=== PATIENT | female | born 1985 | race African-American/Black ===

== ENCOUNTER 2016-05-22 14:42 | Outpatient (CLI) | payer MEDICAID ==
--- NOTE | 2016-05-22 15:44 | Non Stress Test Report ---
Non Stress Test Datetime Report Generated by CPN: 05/22/2016 15:44 DEMOGRAPHIC EGA NST: 36.2 INDICATION Indication for Study: Other Indication for Study (NST) Other: GDM MONITORING Monitor Explained: Monitor Explained; Test Explained; Patient Verbalized Understanding Time on Monitor: 05/22/2016 14:54 Time off Monitor: 05/22/2016 15:29 NST Duration: 35 NST INTERVENTIONS NST Interventions: PO Hydration; Reposition Patient Physician Notified NST: A. Emmel CNM BABY A: [id number] BABY A Movement : Present Contraction Frequency : None FHR Baseline : 135 Accelerations : 15X15 Variability : Moderate 6-25bpm NST Review: Meets Criteria for Reactive NST NST Review and Verified By : Carlos Eduardo Doss RN NST Results: Reactive NST REPORT Report Trigger: Send Report
== END 2016-05-22 15:42 | disposition home or self-care (01) ==
LOC: LC 14:42
PROVIDERS: ATTEND Obstetrics & Gynecology
PROC: 4A1HXCZ Monitoring of Products of Conception, Cardiac Rate, External Approach (ICD-10-PCS; principal; 2016-05-22)
DX: O24.419 Gestational diabetes mellitus in pregnancy, unspecified control (principal); Z3A.36 36 weeks gestation of pregnancy
CPT/HCPCS: 59025

== ENCOUNTER 2016-06-07 11:29 | Outpatient (CLI) | payer MEDICAID ==
--- NOTE | 2016-06-07 12:01 | L&D Flow Sheet ---
LD Flowsheet Datetime Report Generated by CPN: 06/07/2016 12:00 Datetime: 06/07/2016 11:58 Patient Care Patient Position/Activity: Right Lateral (Saba Vitrano, RN) Datetime: 06/07/2016 11:40 NBP Sys/Katie/Mean (mmHg): 118 (QS system process) : 65 (QS system process) : 84 (QS system process) Pulse: 88 (QS system process) Respirations: 16 (Saba Vitrano, RN) Temperature (F): 98.6 (Saba Vitrano, RN) Temperature (C): 37.0 (QS system process) Temperature Route: Oral (Saba Vitrano, RN) Communication LaborFlag: Labor (QS system process) Datetime: 06/07/2016 11:38 Vital Signs Stage of : Labor (Saba Rodriguez, OBED) Patient Care Patient Position/Activity: Left Tilt; Semi-Fowlers (Sbaa Rodriguez RN) I/O Interventions: Ice Chips Given; Popsicle; Clear Liquids Given (Saba Rodriguez RN) Patient Care Comments: Pt to unit for repeat NST; denies needs or complaints. (Saba Rodriguez RN) Teaching Instructional Method: Verbal; Patient Instructed; Verbalized Understanding (Saba Rodriguez RN) Plan of Care: Plan of Care Discussed (Saba Rodriguez RN) Unit Routine: [place] to Room; Call [place]; Visiting Policy; Unit Personnel; Monitoring; Safety/Fall Risk Prevention; Bathroom Privileges (Saba Rodriguez RN)
--- NOTE | 2016-06-07 12:13 | Non Stress Test Report ---
Non Stress Test Datetime Report Generated by CPN: 06/07/2016 12:13 DEMOGRAPHIC Test Number: 2 EGA NST: 38.4 INDICATION Indication for Study: Diabetes Mellitus Indication for Study (NST) Other: gdm MONITORING Monitor Explained: Monitor Explained; Test Explained; Patient Verbalized Understanding Time on Monitor: 06/07/2016 11:38 Time off Monitor: 06/07/2016 12:04 NST Duration: 26 NST INTERVENTIONS NST Interventions: PO Hydration; Reposition Patient Physician Notified NST: H. Derek, CNM BABY A: [id number] BABY A Movement : Present Contraction Frequency : x1 FHR Baseline : 120 Accelerations : 15X15 Decelerations : None Variability : Moderate 6-25bpm NST Review: Meets Criteria for Reactive NST NST Review and Verified By : Terry Bui RNC NST Results: Reactive NST REPORT Report Trigger: Send Report
== END 2016-06-07 12:09 | disposition home or self-care (01) ==
LOC: LC 11:29
PROVIDERS: ATTEND Obstetrics & Gynecology
PROC: 4A1HXCZ Monitoring of Products of Conception, Cardiac Rate, External Approach (ICD-10-PCS; principal; 2016-06-07)
DX: O24.419 Gestational diabetes mellitus in pregnancy, unspecified control (principal); Z3A.38 38 weeks gestation of pregnancy
CPT/HCPCS: 59025

== ENCOUNTER 2016-06-11 12:21 | Outpatient (CLI) | payer MEDICAID ==
--- NOTE | 2016-06-11 13:27 | Non Stress Test Report ---
Non Stress Test Datetime Report Generated by CPN: 06/11/2016 13:27 DEMOGRAPHIC EGA NST: 39.1 INDICATION Indication for Study: Diabetes Mellitus; Ordered by Provider Indication for Study (NST) Other: GDM MONITORING Monitor Explained: Monitor Explained; Test Explained; Patient Verbalized Understanding Time on Monitor: 06/11/2016 13:04 Time off Monitor: 06/11/2016 13:24 NST Duration: 20 NST INTERVENTIONS NST Interventions: PO Hydration; Reposition Patient Physician Notified NST: K Delgado CNM BABY A: [id number] BABY A Movement : Present Contraction Frequency : rare FHR Baseline : 130 Accelerations : 15X15 Decelerations : None Variability : Moderate 6-25bpm NST Review: Meets Criteria for Reactive NST NST Review and Verified By : Mark Torres RN NST Results: Reactive NST REPORT Report Trigger: Send Report
== END 2016-06-11 13:28 | disposition home or self-care (01) ==
LOC: LC 12:21
PROVIDERS: ATTEND Specialist
PROC: 4A1HXCZ Monitoring of Products of Conception, Cardiac Rate, External Approach (ICD-10-PCS; principal; 2016-06-11)
DX: O24.419 Gestational diabetes mellitus in pregnancy, unspecified control (principal); Z3A.39 39 weeks gestation of pregnancy
CPT/HCPCS: 59025

== ENCOUNTER 2016-06-12 06:15 | Inpatient (IN) | payer MEDICAID ==
[2016-06-11 11:50] LABS: ABSOLUTE LYMPHOCYTES (AUTO) 1.8 10^3/uL (0.5-4.7); ABSOLUTE MONOCYTES (AUTO) 0.8 10^3/uL (0.1-1.4); ABSOLUTE NEUT (AUTO) 6.3 10^3/uL (1.7-8.2); BASOPHILS % (AUTO) 0.2 % (0-2); EOSINOPHILS % (AUTO) 0.5 % (0-6); HEMATOCRIT 28.9 % (36.0-47.0); HEMOGLOBIN 9.5 g/dL (12.0-15.5); HGB HCT DIFFERENCE -0.4; LYMPHOCYTES % (AUTO) 20.3 % (13-45); MEAN CORPUSCULAR HEMOGLOBIN 25.8 pg (27.0-33.4); MEAN CORPUSCULAR HGB CONC 32.7 g/dL (32.0-36.0); MEAN CORPUSCULAR VOLUME 79 fl (80-97); RED BLOOD COUNT 3.66 10^6/uL (3.72-5.28); RED CELL DISTRIBUTION WIDTH 13.8 % (11.5-14.0); WHITE BLOOD COUNT 8.9 10^3/uL (4.0-10.5)
[2016-06-11 11:57] LABS: APPEARANCE,URINE SLIGHTLY-CLOUDY; BILIRUBIN,URINE NEGATIVE (NEGATIVE); GLUCOSE, URINE NEGATIVE (NEGATIVE); KETONES,URINE NEGATIVE (NEGATIVE); LEUKOCYTE ESTERASE,URINE TRACE (NEGATIVE); NITRITE,URINE NEGATIVE (NEGATIVE); PROTEIN,URINE NEGATIVE (NEGATIVE); URINE SPECIFIC GRAVITY 1.009; UROBILINOGEN,URINE NEGATIVE mg/dL (<2.0)
[2016-06-11 12:18] LABS: URINE BARBITURATES SCREEN NEGATIVE; URINE METHADONE SCREEN NEGATIVE; URINE OPIATES LOW NEGATIVE; URINE PHENCYCLIDINE SCREEN NEGATIVE
[~2016-06-12 06:15] MED LIST: CEFAZOLIN SODIUM 1 GM in DEXTROSE 5%-WATER 50 ML IV PRN; LACTATED RINGERS 1000 ML IV PRN; LIDOCAINE 0.5% INJ-PF (5 MG/ML) 50 ML SDV SUBCUT PRN; RINGERS SOLUTION,LACTATED 2,000 ML IV PRN
[2016-06-12] MEDS ORDERED: MIDAZOLAM 2 MG/2 ML INJ ONE (08:40)
[2016-06-12] MEDS ORDERED: EPHEDRINE SULFATE INJ 50 MG/1 ML AMPULE ONE (08:40)
[2016-06-12] MEDS ORDERED: OXYTOCIN 10 UNIT/ML VIAL ONE (08:41)
[2016-06-12] MEDS ORDERED: PROMETHAZINE HCL INJ 25 MG/1 ML VIAL IV PRN ×2 (09:28)
[2016-06-12] MEDS ORDERED: OXYCODONE-ACETAMINOPHEN 5-325 MG TABLET PO PRN ×3 (09:28→12:44)
[2016-06-12] MEDS ORDERED: DIPHENHYDRAMINE HCL 50 MG/ML VIAL IV PRN (09:28)
[2016-06-12] MEDS ORDERED: MEPERIDINE HCL/PF INJ 25 MG/1 ML DISP.SYRIN IV PRN (09:28)
[2016-06-12] MEDS ORDERED: FENTANYL CITRATE INJ/PF 100 MCG/2 ML AMPUL IV PRN ×3 (09:28)
[2016-06-12] MEDS ORDERED: MORPHINE SULFATE 10 MG/ML INJ IV PRN (09:28)
[2016-06-12] MEDS ORDERED: KETOROLAC TROMETHAMINE INJ/PF 30 MG/1 ML SDV ONE (11:04)
[2016-06-12] MEDS: FENTANYL CITRATE INJ/PF 100 MCG/2 ML AMPUL ONE ×2 (11:19→11:45)
[2016-06-12] MEDS ORDERED: OXYTOCIN/NORMAL SALINE 20 UNIT/1,000 ML RTUINJ ONE (12:03)
[2016-06-12] MEDS ORDERED: ONDANSETRON HCL INJ/PF 4 MG/2 ML SDV ONE ×2 (12:10→14:13)
[2016-06-12] MEDS ORDERED: PHENYLEPHRINE HCL INJ/PF 10 MG/1 ML SDV ONE (12:10)
[2016-06-12] MEDS ORDERED: HYDROMORPHONE HCL INJ/PF 2 MG/ML AMPULE ONE (12:35)
[2016-06-12] MEDS ORDERED: DIPH/PERTUSS(ACELL)/TETANUS VAC/PF 0.5 ML SYR (>=10YO) IM PRN (12:44)
[2016-06-12] MEDS ORDERED: MEASLES,MUMPS&RUBELLA VACC/PF 0.5 ML VIAL SUBCUT PRN (12:44)
[2016-06-12] MEDS ORDERED: SIMETHICONE 80 MG TAB.CHEW PO PRN (12:44)
[2016-06-12] MEDS ORDERED: HYDROMORPHONE HCL INJ/PF 2 MG/ML AMPULE IV PRN (12:44)
[2016-06-12] MEDS ORDERED: ACETAMINOPHEN 325 MG TABLET PO PRN (12:44)
[2016-06-12] MEDS ORDERED: PROMETHAZINE HCL INJ 25 MG/1 ML VIAL IM PRN (12:44)
[2016-06-12] MEDS ORDERED: OXYTOCIN/NORMAL SALINE 20 UNIT/1,000 ML RTUINJ INJ PRN (12:44)
[2016-06-12] MEDS ORDERED: RINGERS SOLUTION,LACTATED 1,000 ML IV PRN (12:46)
[2016-06-12] MEDS ORDERED: ONDANSETRON HCL INJ/PF 4 MG/2 ML SDV IV PRN (13:47)
[2016-06-12] MEDS: OXYCODONE-ACETAMINOPHEN 5-325 MG TABLET PO PRN ×2 (14:55→20:42)
[2016-06-12] MEDS: DOCUSATE SODIUM 100 MG CAPSULE PO SCH (17:48)
[2016-06-12] MEDS: KETOROLAC TROMETHAMINE INJ/PF 30 MG/1 ML SDV IV SCH (17:49)
[2016-06-12] MEDS ORDERED: RINGERS SOLUTION,LACTATED 500 ML IV ONE (20:00)
[2016-06-13] MEDS: KETOROLAC TROMETHAMINE INJ/PF 30 MG/1 ML SDV IV SCH (02:13)
[2016-06-13] MEDS: OXYCODONE-ACETAMINOPHEN 5-325 MG TABLET PO PRN ×2 (02:27→21:11)
[2016-06-13 07:42] LABS: HGB HCT DIFFERENCE -0.1; MEAN CORPUSCULAR HEMOGLOBIN 26.1 pg (27.0-33.4); MEAN CORPUSCULAR VOLUME 79 fl (80-97); RED BLOOD COUNT 2.78 10^6/uL (3.72-5.28); RED CELL DISTRIBUTION WIDTH 14.3 % (11.5-14.0); WHITE BLOOD COUNT 8.4 10^3/uL (4.0-10.5)
[2016-06-13 08:11] LABS: HEMOGLOBIN 7.3 g/dL (12.0-15.5)
[2016-06-13] MEDS: IBUPROFEN 800 MG TABLET PO SCH ×3 (08:43→21:51)
--- NOTE | 2016-06-13 09:08 | PDOC PROGRESS REPORT ---
Subjective-OB Subjective: Post Delivery Day: 31 year old. Having problem with gas. Distressed as baby has fever and will stay in hospital x 48 hrs. Physical Exam (OB) Vital Signs: Temp Pulse Resp BP Pulse Ox 97.3 F 89 17 103/63 94 06/13/16 08:17 06/13/16 08:17 06/13/16 08:17 06/13/16 08:17 06/13/16 08:17 Intake & Output 06/12/16 06/13/16 06/14/16 06:59 06:59 06:59 Intake Total 4700 Output Total 2800 Balance 1900 Weight 80.29 kg 80.739 kg - Dressing Removed: No - medipore Incision: Dressing - Lochia Lochia Amount: Small 10-25 ml Lochia Color: Rubra/Red - Abdomen Description: Soft, Round Hernia Present: No Bowel Sounds: Normoactive Flatus Presence: Absent Stool: No Fundal Description: Firm, Midline Fundal Height: u/u - u/2 Objective-Diagnostic Laboratory: 06/13/16 07:25 06/13/16 07:25 WBC 8.4 RBC 2.78 L Hgb 7.3 L D Hct 22.0 L MCV 79 L MCH 26.1 L MCHC 33.0 RDW 14.3 H Plt Count 187
[2016-06-13] MEDS: DOCUSATE SODIUM 100 MG CAPSULE PO SCH ×2 (10:22→18:06)
[2016-06-13] MEDS: PRENATAL VITAMIN W-O CA NO5/FE FUMARATE/FA CAPSULE PO SCH (10:22)
[2016-06-13] MEDS ORDERED: INFLUENZA ADLT QUAD (36MOS+) 2016-17 VAC 0.5 ML SYR IM PRN (15:01)
[2016-06-14] MEDS: IBUPROFEN 800 MG TABLET PO SCH ×4 (03:41→20:19)
[2016-06-14] MEDS: OXYCODONE-ACETAMINOPHEN 5-325 MG TABLET PO PRN ×3 (05:47→20:20)
[2016-06-14] MEDS: DOCUSATE SODIUM 100 MG CAPSULE PO SCH ×2 (09:44→17:34)
[2016-06-14] MEDS: PRENATAL VITAMIN W-O CA NO5/FE FUMARATE/FA CAPSULE PO SCH (09:44)
--- NOTE | 2016-06-14 09:45 | PDOC PROGRESS REPORT ---
Subjective-OB Subjective: Post Delivery Day: 31 year old. Denies any needs at this time pt ambulating infant in nicu no bowel movement +flatus abdomen soft and nontender FF@u-2 mild lochia good support anticipate discharge in AM Physical Exam (OB) Vital Signs: Temp Pulse Resp BP Pulse Ox 98.5 F 86 16 112/66 100 06/14/16 08:05 06/14/16 08:05 06/14/16 08:05 06/14/16 07:41 06/14/16 08:05 Intake & Output 06/13/16 06/14/16 06/15/16 06:59 06:59 06:59 Intake Total 4700 Output Total 2800 Balance 1900 Weight 80.739 kg - Dressing Removed: No Incision: Well Approximated - Lochia Lochia Amount: Scant < 10 ml Lochia Color: Rubra/Red - Abdomen Description: Tender, Soft Hernia Present: No Fundal Description: Firm, Midline Fundal Height: u/u - u/2 Objective-Diagnostic Laboratory: 06/13/16 07:25
[2016-06-15] MEDS: IBUPROFEN 800 MG TABLET PO SCH ×3 (02:55→15:17)
[2016-06-15] MEDS: OXYCODONE-ACETAMINOPHEN 5-325 MG TABLET PO PRN (02:57)
[2016-06-15] MEDS: DOCUSATE SODIUM 100 MG CAPSULE PO SCH (10:29)
--- NOTE | 2016-06-15 10:29 | PDOC DISCHARGE SUMMARY ---
Final Diagnosis Discharge Date: 06/15/16 - Final Diagnosis (1) Delivery by elective caesarean section Is this a current diagnosis for this admission?: Yes (2) Anemia due to acute blood loss Is this a current diagnosis for this admission?: Yes Discharge Data - Discharge Medication Home Medications: No Home Medications 05/04/13 No Home Medications 06/11/16 Reason(s) for Admission: Ceasarean Section-Repeat Procedures: None Intrapartum Procedure(s): : Low Cervical, Transverse - Diagnosis Test Laboratory: Temp Pulse Resp BP Pulse Ox 97.9 F 74 16 130/66 H 100 06/15/16 08:01 06/15/16 08:01 06/15/16 08:01 06/15/16 08:01 06/15/16 08:01 06/11/16 06/11/16 06/13/16 10:53 11:02 07:25 RBC 3.66 L 2.78 L Hgb 9.5 L 7.3 L D Hct 28.9 L 22.0 L Urine Opiates Screen NEGATIVE - Discharge information/Instructions Discharge Activity: Activity As Tolerated, No Driving, No Lifting Over 10 Pounds , Pelvic Rest, No tub bath Discharge Diet: Regular Disposition: HOME, SELF-CARE Follow up with: [facility] in: 5, Days
[2016-06-15] MEDS: PRENATAL VITAMIN W-O CA NO5/FE FUMARATE/FA CAPSULE PO SCH ×2 (10:30→10:33)
[2016-06-15 14:29] VITALS: BP 130/66
== END 2016-06-15 16:30 | disposition home or self-care (01) | DRG 775 ==
LOC: 2S 06:15
PROVIDERS: ADMIT Obstetrics & Gynecology; ATTEND Obstetrics & Gynecology
PROC: 4A1HXCZ Monitoring of Products of Conception, Cardiac Rate, External Approach (ICD-10-PCS; 2016-06-12)
PROC: 10E0XZZ Delivery of Products of Conception, External Approach (ICD-10-PCS; principal; 2016-06-12 09:00)
PROC: 3E0234Z Introduction of Serum, Toxoid and Vaccine into Muscle, Percutaneous Approach (ICD-10-PCS; 2016-06-15)
PROC: 3E0234Z Introduction of Serum, Toxoid and Vaccine into Muscle, Percutaneous Approach (ICD-10-PCS; 2016-06-15)
DX: O34.211 Maternal care for low transverse scar from previous cesarean delivery (principal); D62 Acute posthemorrhagic anemia; O99.02 Anemia complicating childbirth; O99.334 Smoking (tobacco) complicating childbirth; F17.210 Nicotine dependence, cigarettes, uncomplicated; O24.429 Gestational diabetes mellitus in childbirth, unspecified control; O99.344 Other mental disorders complicating childbirth; F31.9 Bipolar disorder, unspecified; F20.9 Schizophrenia, unspecified; Z91.410 Personal history of adult physical and sexual abuse; Z3A.39 39 weeks gestation of pregnancy; Z37.0 Single live birth; Z23 Encounter for immunization
CPT/HCPCS: 1961; 36415; 59025; 80307; 81001; 82962; 85025; 85027; 86850; 86900; 86901; 90686; 90715; 94799; J0690; J1170; J1885; J2250; J2370; J2405; J2590; J3010; J3490; J7120

== ENCOUNTER 2016-12-30 11:30 | Emergency (ER) | payer SELFPAY ==
[2016-12-30 12:32] LABS: ABSOLUTE LYMPHOCYTES (AUTO) 1.7 10^3/uL (0.5-4.7); ABSOLUTE MONOCYTES (AUTO) 0.4 10^3/uL (0.1-1.4); ABSOLUTE NEUT (AUTO) 2.6 10^3/uL (1.7-8.2); BASOPHILS % (AUTO) 0.4 % (0-2); EOSINOPHILS % (AUTO) 0.2 % (0-6); HEMATOCRIT 36.1 % (36.0-47.0); HEMOGLOBIN 12.1 g/dL (12.0-15.5); HGB HCT DIFFERENCE 0.2; LYMPHOCYTES % (AUTO) 36.3 % (13-45); MEAN CORPUSCULAR HEMOGLOBIN 27.5 pg (27.0-33.4); MEAN CORPUSCULAR HGB CONC 33.5 g/dL (32.0-36.0); MEAN CORPUSCULAR VOLUME 82 fl (80-97); MONOCYTES % (AUTO) 9.2 % (3-13); RED BLOOD COUNT 4.41 10^6/uL (3.72-5.28); RED CELL DISTRIBUTION WIDTH 16.7 % (11.5-14.0); SEGMENTED NEUTROPHILS % (AUTO) 53.9 % (42-78); WHITE BLOOD COUNT 4.8 10^3/uL (4.0-10.5)
[2016-12-30 12:36] LABS: APPEARANCE,URINE SLIGHTLY-CLOUDY; BILIRUBIN,URINE NEGATIVE (NEGATIVE); GLUCOSE, URINE NEGATIVE (NEGATIVE); KETONES,URINE NEGATIVE (NEGATIVE); LEUKOCYTE ESTERASE,URINE NEGATIVE (NEGATIVE); NITRITE,URINE NEGATIVE (NEGATIVE); PROTEIN,URINE NEGATIVE (NEGATIVE); URINE SPECIFIC GRAVITY 1.024
--- NOTE | 2016-12-30 12:40 | ER Document Report ---
ED GI/ - General Mode of Arrival: Ambulatory Information source: Patient TRAVEL OUTSIDE OF THE [place] IN LAST 30 DAYS: No - HPI Patient complains to provider of: Abdominal pain, Diarrhea Associated symptoms: Other - see above <ISSAC LOAIZA - Last Filed: 12/30/16 12:42> <MARY CLINTON - Last Filed: 12/30/16 14:17> - General Chief Complaint: Abdominal Pain Stated Complaint: ABDOMINAL PAIN Time Seen by Provider: 12/30/16 12:26 Notes: Patient is a 31 year old female who presents to the ED with complaints of abdominal pain x1 1/2 weeks that has worsened in the past 2 days. Patient is nauseous and has had some diarrhea for the past 2 days. Patient has had 2 c sections. Patients LMP was on 11/24/2016, she is unsure if she is and states that her cycle is irregular. (ISSAC LOAIZA) - Related Data Allergies/Adverse Reactions: No Known Allergies Allergy (Verified 12/30/16 11:35) Home Medications: Current Home Medications No Home Medications 12/30/16 [History] Past Medical History - General Information source: Patient - Social History Smoking Status: Current Every Day Smoker Chew tobacco use (# tins/day): - 45 Frequency of alcohol use: Rare Drug Abuse: Marijuana Family History: Reviewed & Not Pertinent Neurological Medical History: Reports: Hx Seizures - onset Age 6 last in 2006 GI Medical History: Reports: Hx Hiatal Hernia - age 6 Psychiatric Medical History: Reports: Hx Bipolar Disorder, Hx Depression - pp depression, Hx Schizophrenia - Paranoid type Infectious Medical History: Denies: Hx HIV Past Surgical History: Reports: Hx Section - x2, Hx Herniorrhaphy - Immunizations Hx Diphtheria, Pertussis, Tetanus Vaccination: No <ISSAC LOAIZA - Last Filed: 12/30/16 12:42> - Social History Cigarette use (# per day): Yes - 1/4 PPD Chew tobacco use (# tins/day): No Smoking Education Provided: No Frequency of alcohol use: Rare Drug Abuse: Marijuana Occupation: Unemployed Lives with: Family <MARY CLINTON - Last Filed: 12/30/16 14:17> Review of Systems - Review of Systems Constitutional: No symptoms reported EENT: No symptoms reported Cardiovascular: No symptoms reported Respiratory: No symptoms reported Gastrointestinal: See HPI, Abdominal pain, Diarrhea, Nausea Genitourinary: No symptoms reported Female Genitourinary: No symptoms reported Musculoskeletal: No symptoms reported Skin: No symptoms reported Hematologic/Lymphatic: No symptoms reported Neurological/Psychological: No symptoms reported <ISSAC LOAIZA - Last Filed: 12/30/16 12:42> Physical Exam - General General appearance: Appears well, Alert In distress: None - HEENT Head: Normocephalic, Atraumatic Eyes: Normal Extraocular movements intact: Yes Pupils: PERRL Tympanic membrane: Normal Mucous membranes: Normal Pharynx: Normal - Respiratory Respiratory status: No respiratory distress Breath sounds: Normal - Cardiovascular Rhythm: Regular Heart sounds: Normal auscultation Murmur: No - Abdominal Inspection: Normal Distension: No distension Bowel sounds: Hyperactive - gas and fluid sounds like enteritis Tenderness: Tender - RLQ and plevic area - Back Back: Normal - Extremities General upper extremity: Normal inspection, Normal ROM General lower extremity: Normal inspection, Normal ROM - Neurological Neuro grossly intact: Yes - Psychological Associated symptoms: Normal affect, Normal mood - Skin Skin Temperature: Warm Skin Moisture: Dry Skin Color: Normal <ISSAC LOAIZA - Last Filed: 12/30/16 12:42> - Vital signs Vitals: Temp Pulse Resp BP Pulse Ox 98.4 F 91 22 H 118/76 100 12/30/16 11:34 12/30/16 11:34 12/30/16 11:34 12/30/16 11:34 12/30/16 11:34 Course - Laboratory Result Diagrams: 12/30/16 12:11 12/30/16 12:11 <ISSAC LOAIZA - Last Filed: 12/30/16 12:42> - Laboratory Result Diagrams: 12/30/16 12:11 12/30/16 12:11 - Diagnostic Test Radiology reviewed: Reports reviewed - Transvaginal ultrasound shows a 5 week 5 day intrauterine <MARY CLINTON - Last Filed: 12/30/16 14:17> - Vital Signs Vital signs: Temp Pulse Resp BP Pulse Ox 98.4 F 91 22 H 118/76 100 12/30/16 11:34 12/30/16 11:34 12/30/16 11:34 12/30/16 11:34 12/30/16 11:34 - Laboratory Laboratory results interpreted by me: 12/30/16 12/30/16 12/30/16 12:11 12:11 12:11 RDW 16.7 H Creatinine 0.51 L Glucose 61 L Beta HCG, Quant Urine Urobilinogen 2.0 H Urine HCG, Qual POSITIVE H 12/30/16 12:11 RDW Creatinine Glucose Beta HCG, Quant 8147.60 H Urine Urobilinogen Urine HCG, Qual Discharge <ISSAC LOAIZA - Last Filed: 12/30/16 12:42> <MARY CLINTON - Last Filed: 12/30/16 14:17> - Discharge Clinical Impression: Early stage of Condition: Stable Disposition: HOME, SELF-CARE Additional Instructions: : You are . care is best started as early in as possible. You should take only medications approved by your physician. Acetaminophen can safely be taken for minor pains. As a rule, medication for chronic conditions such as asthma or seizures can safely be continued. You should discuss with the physician every medicine you take. Any regular exercise program can be continued. Talk to your physician, however, before engaging in competitive or demanding sports. Alcohol, smoking, and "street drugs" are dangerous to your baby. Cocaine is especially dangerous. Don't use any illicit drugs! Abdominal Pain: There are many causes of abdominal pain. Pain can mean a serious problem requiring surgery (such as appendicitis). It can also be an innocent problem that goes away on its own (such as a viral infection). Often, time must pass to determine the cause of pain. The physician does not feel that hospitalization is necessary, at present. Things may change within the next 24 hours. Call the doctor or come back for re- examination if any problems occur, such as: (1) Pain that becomes more severe, steady, or becomes concentrated in one specific area. Also, pain that is more severe with movement or coughing. (2) Vomiting that persists or becomes more frequent. (3) Blood in the vomitus, urine, or bowel movements. Blood in the stool may have a tarry or black appearance. (4) Shaking chills or fever greater than 100 degrees F. (5) The abdomen becomes more distended or swollen. (6) Bowel movements cease. (7) Failure to improve as expected. RETURN TO THE EMERGENCY ROOM IF ANY NEW OR WORSENING SYMPTOMS. Scribe Documentation - Scribe Written by Neil:: neil Sneed, 12/30/2016, 1242 acting as scribe for :: Mayo <ISSAC LOAIZA - Last Filed: 12/30/16 12:42>
[2016-12-30 12:52] LABS: ADD ON TESTING BLD IN LAB ACKNOWLEDGE
[2016-12-30 12:57] LABS: ANION GAP 12 (5-19); BLOOD UREA NITROGEN 7 mg/dL (7-20); CALCIUM 9.9 mg/dL (8.4-10.2); CARBON DIOXIDE 22 mmol/L (22-30); CHLORIDE 107 mmol/L (98-107); CREATININE RESULT 0.51 mg/dL (0.52-1.25); GLUCOSE 61 mg/dL (75-110); SODIUM 141.2 mmol/L (137-145)
[2016-12-30 13:14] LABS: URINE BARBITURATES SCREEN NEGATIVE; URINE METHADONE SCREEN NEGATIVE; URINE OPIATES LOW NEGATIVE; URINE PHENCYCLIDINE SCREEN NEGATIVE
--- NOTE | 2016-12-30 13:47 | RADIOLOGY REPORT (SQ) ---
EXAM DESCRIPTION: U/S OB TRANSVAGINAL W/O DOP COMPLETED DATE/TIME: 12/30/2016 1:29 pm REASON FOR STUDY: pelvic pain COMPARISON: No previous this TECHNIQUE: Endovaginal static and realtime grayscale images acquired of the pelvis. Additional selec marilu spectral and color Doppler images recorded. All images stored on PACs. BHCG: Not available LIMITATIONS: None. FINDINGS: UTERUS: Uterus measures 11 x 7 x 6 cm in size. Within in a endometrial canal, an intraute rine gestational sac is present which yolk sac, mean sac diameter generates an age of 5 weeks 5 days. RIGHT ADNEXA: Not visualized due to adnexal bowel gas LEFT ADNEXA: Normal ovary with normal vascular flow. Left ovary 2.8 x 2.4 x 2.1 cm in size. No adne xal free fluid.No adnexal masses. FREE FLUID: None. OTHER: No other significant finding. IMPRESSION: Anechoic intrauterine gestational sac with surrounding decidual reaction and yolk sac. Embryo not yet seen. By mean sac diameter, estimated age is 5 weeks 5 days, estimated due date 2016. Right ovary not visualized. FOLLOW-UP ULTRASOUND AND SERIAL BHCG LEVELS STRONGLY RECOMMENDED TO ACCURATELY ASSESS STATU S. TECHNICAL DOCUMENTATION: JOB ID: [id number] [employer]- All Rights Reserved
[2016-12-30 14:22] VITALS: BP 120/78
== END 2016-12-30 14:22 | disposition home or self-care (01) ==
LOC: ER 11:30
DX: O26.891 Other specified pregnancy related conditions, first trimester (principal); R10.9 Unspecified abdominal pain; R11.0 Nausea; R19.7 Diarrhea, unspecified; O99.331 Smoking (tobacco) complicating pregnancy, first trimester; F17.210 Nicotine dependence, cigarettes, uncomplicated; Z3A.01 Less than 8 weeks gestation of pregnancy
CPT/HCPCS: 36415; 76817; 80048; 80307; 81001; 81025; 84702; 85025; 99284

== ENCOUNTER 2017-08-25 05:03 | Inpatient (IN) | payer MEDICAID ==
[2017-08-22 12:48] LABS: ABSOLUTE EOSINOPHILS # (AUTO) 0.1 10^3/uL (0.0-0.6); ABSOLUTE MONOCYTES (AUTO) 0.6 10^3/uL (0.1-1.4); BASOPHILS % (AUTO) 0.2 % (0-2); HEMOGLOBIN 9.6 g/dL (12.0-15.5); LYMPHOCYTES % (AUTO) 26.3 % (13-45); MEAN CORPUSCULAR HEMOGLOBIN 25.4 pg (27.0-33.4); MEAN CORPUSCULAR HGB CONC 32.1 g/dL (32.0-36.0); MEAN CORPUSCULAR VOLUME 79 fl (80-97); MONOCYTES % (AUTO) 7.5 % (3-13); PLATELET COUNT 269 10^3/uL (150-450); RED CELL DISTRIBUTION WIDTH 13.8 % (11.5-14.0); TOTAL CELLS COUNTED % (AUTO) 100 %; WHITE BLOOD COUNT 7.8 10^3/uL (4.0-10.5)
[2017-08-22 12:52] LABS: APPEARANCE,URINE SLIGHTLY-CLOUDY; BILIRUBIN,URINE NEGATIVE (NEGATIVE); COLOR,URINE YELLOW; GLUCOSE, URINE NEGATIVE (NEGATIVE); KETONES,URINE NEGATIVE (NEGATIVE); LEUKOCYTE ESTERASE,URINE NEGATIVE (NEGATIVE); NITRITE,URINE NEGATIVE (NEGATIVE); PROTEIN,URINE NEGATIVE (NEGATIVE); URINE SPECIFIC GRAVITY 1.018
[2017-08-22 14:15] LABS: URINE AMPHETAMINES SCREEN NEGATIVE; URINE BARBITURATES SCREEN NEGATIVE; URINE BENZODIAZEPINES SCREEN NEGATIVE; URINE COCAINE SCREEN NEGATIVE; URINE MARIJUANA (THC) SCREEN NEGATIVE; URINE METHADONE SCREEN NEGATIVE; URINE PHENCYCLIDINE SCREEN NEGATIVE
[~2017-08-25 05:03] MED LIST changes: +AZITHROMYCIN 500 MG in DEXTROSE 5%-WATER 250 ML IV SCH; +CEFAZOLIN 1 GM/D5W RTU 1 GM/50 ML RTUPB IV SCH; -CEFAZOLIN SODIUM 1 GM in DEXTROSE 5%-WATER 50 ML IV PRN; -RINGERS SOLUTION,LACTATED 2,000 ML IV PRN
[2017-08-25] MEDS ORDERED: AZITHROMYCIN INJ 500 MG VIAL IV ONE (06:43)
[2017-08-25] MEDS ORDERED: OXYTOCIN 10 UNIT/ML VIAL ONE (07:21)
[2017-08-25] MEDS ORDERED: MIDAZOLAM 2 MG/2 ML INJ ONE (07:22)
[2017-08-25] MEDS ORDERED: EPHEDRINE SULFATE INJ 50 MG/1 ML AMPULE ONE (07:22)
[2017-08-25] MEDS ORDERED: FENTANYL CITRATE INJ/PF 100 MCG/2 ML AMPUL ONE (07:22)
[2017-08-25] MEDS ORDERED: PROPOFOL INJ 200 MG/20 ML VIAL IV ONE (07:22)
[2017-08-25] MEDS ORDERED: OXYTOCIN/NORMAL SALINE 20 UNIT/1,000 ML RTUINJ ONE (07:23)
[2017-08-25] MEDS ORDERED: ACETAMINOPHEN 100 ML IV ONE (07:23)
[2017-08-25] MEDS ORDERED: ATROPINE SULFATE INJ 1 MG/10 ML DISP.SYRIN IV ONE (07:23)
[2017-08-25] MEDS ORDERED: TETRACAINE HCL/PF 20MG/2ML AMPULE (SPINAL) ONE (07:24)
[2017-08-25] MEDS ORDERED: FENTANYL CITRATE INJ/PF 100 MCG/2 ML AMPUL IV PRN ×3 (07:47)
[2017-08-25] MEDS ORDERED: DIPHENHYDRAMINE HCL 50 MG/ML VIAL IV PRN (07:47)
[2017-08-25] MEDS ORDERED: PROMETHAZINE HCL INJ 25 MG/1 ML VIAL IV PRN (07:47)
--- NOTE | 2017-08-25 08:42 | PDOC DELIVERY SUMMARY ---
Delivery Summary - Maternal Hx : VII Hx # Term Pregnancies: 4 Hx Total # of Abortions (Sponateous & Elective): 2 RICKIE: 08/30/17 Gestational Age: 39+2 Ruptured Membranes: AROM Time of Rupture: 08:08 Fluids: Clear - Delivery Presentation: Vertex Support Person Present: Yes Location: OR : Scheduled, Repeat Placenta: Within Normal Limits Nuchal Cord: Yes - X2 Delivery of Placenta Date: 08/25/17 Delivery of Placenta Time: 08:10 - Medications Type of Anesthesia:: Spinal - Infant Assess and Care Baby 1 Delivery of Infant Date: 08/25/17 Delivery of Infant Time: 08:09 Preprinted Number On Band: [id number] Infant Mode of Transport: Bassinet Baby 1 Male Delivery of Date: 08/25/17 Delivery of Time: 08:09 at 5 minutes: 7 at 10 minutes: 9 Preprinted Number On Band: [id number] Skin to Skin: No Mode of Transport: Bassinet - Delivery Personnel Game Farm Helper: NORIS WILD RN: LISA ORTIZ RN: MELITON CEBALLOS MD: GERA COSBY
--- NOTE | 2017-08-25 08:50 | OPERATIVE REPORT E ---
Operative Report NAME: LAINE RAMEY : 1985 AGE: 32Y DATE OF SURGERY: 08/25/2017 ROOM: 227 PREOPERATIVE DIAGNOSIS: INTRAUTERINE AT TERM WITH PRIOR SECTION. POSTOPERATIVE DIAGNOSIS: INTRAUTERINE AT TERM WITH PRIOR SECTION. OPERATION: Repeat low transverse caesarean section with delivery of a viable male 6 pounds 14 ounces, Apgars of 7 and 9. SURGEON: Alfonso COSBY M.D. ESTIMATED BLOOD LOSS: Less than 600 mL ANESTHESIA: Spinal. TISSUE REMOVED OR ALTERED: Placenta. PROCEDURE: Patient was placed in a supine position, rolled on her right side, prepped and draped in sterile fashion. A Pfannenstiel incision was made through an existing Pfannenstiel eschar, the incision extended to the subcutaneous tissue with sharp dissection. The fascia was sharply divided. Rectus muscles bluntly and sharply divided. Parietal peritoneum was entered with sharp dissection. The uterus was nicked in the midline and extended bilaterally. The was then delivered through the uterine and abdominal incision. Nose suctioned with a bulb syringe. Cord was clamped and the was passed from the table. The placenta was manually extracted. The uterus was closed in 2 layers using 0 Vicryl first in a running stitch and the second a Lembert stitch imbricating the first layer. Two areas of bleeding were noted and controlled with [id number] sutures of 2-0 Vicryl. Fascia was closed with 0 Vicryl, skin was closed with subcutaneous absorbable jose. The patient tolerated the procedure well. Her urine remained clear throughout the procedure. She was taken to the recovery room in good condition, the infant to nursery in good condition. DICTATING PHYSICIAN: Alfonso COSBY M.D. [id number] PHY#: [id number] ID: [id number] JOB#: [id number] ACCT: [id number] cc:Alfonso COSBY M.D. >
[2017-08-25] MEDS ORDERED: MORPHINE SULFATE 10 MG/ML INJ ONE ×2 (09:18→16:13)
[2017-08-25] MEDS ORDERED: OXYTOCIN/NORMAL SALINE 20 UNIT/1,000 ML RTUINJ INJ PRN (09:27)
[2017-08-25] MEDS ORDERED: MEASLES,MUMPS&RUBELLA VACC/PF 0.5 ML VIAL SUBCUT PRN (09:30)
[2017-08-25] MEDS ORDERED: PROMETHAZINE HCL INJ 25 MG/1 ML VIAL IM PRN (09:30)
[2017-08-25] MEDS ORDERED: DIPH/PERTUSS(ACELL)/TETANUS VAC/PF 0.5 ML SYR (>=10YO) IM PRN (09:30)
[2017-08-25] MEDS ORDERED: OXYCODONE-ACETAMINOPHEN 5-325 MG TABLET PO PRN (09:30)
[2017-08-25] MEDS ORDERED: ACETAMINOPHEN 325 MG TABLET PO PRN (09:30)
[2017-08-25] MEDS ORDERED: MISOPROSTOL 0.2 MG TABLET ONE (10:36)
[2017-08-25] MEDS: PRENATAL VITAMIN W DHA CAPSULE PO SCH (10:39)
[2017-08-25] MEDS: DOCUSATE SODIUM 100 MG CAPSULE PO SCH ×2 (10:39→18:08)
[2017-08-25] MEDS: IBUPROFEN 800 MG TABLET PO SCH ×2 (12:14→18:08)
[2017-08-25] MEDS: MORPHINE SULFATE 10 MG/ML INJ IM PRN ×2 (12:14→16:14)
[2017-08-25] MEDS ORDERED: METHYLERGONOVINE MALEATE INJ/PF 0.2 MG/1 ML AMPULE ONE (12:28)
--- NOTE | 2017-08-25 12:34 | PDOC PROGRESS REPORT ---
Subjective-OB Progress Note for:: 08/25/17 Subjective: postop day # 0 Called to bedside for heavy bleeding, pt in pain, just out of PACU Physical Exam (OB) Vital Signs: Temp Pulse Resp BP Pulse Ox 97.5 F 70 16 102/70 100 08/25/17 11:16 08/25/17 11:16 08/25/17 11:16 08/25/17 11:16 08/25/17 11:16 Intake & Output 08/24/17 08/25/17 08/26/17 06:59 06:59 06:59 Intake Total 0 Balance 0 - Dressing Removed: No - Lochia Lochia Amount: Heavy >50 ml Lochia Color: Rubra/Red - Abdomen Stool: No Fundal Description: Boggy Fundal Height: 1/u - 2/u > 4/u*- Describe: clots expressed with fundal massage Objective-Diagnostic Laboratory: 08/22/17 11:38 Assessment and Plan(PN) - Assessment and Plan (1) Anemia due to acute blood loss Is this a current diagnosis for this admission?: Yes Plan: given rectal cytotec in PACU methergine 0.2 mg IM now montior bleeding cbc in 4 hours. (2) Bipolar, depression, schizophrenia Is this a current diagnosis for this admission?: Yes Plan: dc planning (3) Delivery by elective caesarean section Is this a current diagnosis for this admission?: Yes Plan: routine post op care (4) GDM (gestational diabetes mellitus) Qualifiers: Gestational diabetes mellitus control: unspecified Trimester: third trimester Qualified Code(s): O24.419 - Gestational diabetes mellitus in , unspecified control Is this a current diagnosis for this admission?: Yes - Time Spent with Patient Time with patient: Less than 15 minutes Critical Time spent with patient: Less than 15 minutes Medications reviewed and adjusted accordingly: Yes - Disposition Anticipated Discharge: Home Within: within 24 hours
[2017-08-25] MEDS ORDERED: ONDANSETRON HCL INJ/PF 4 MG/2 ML SDV ONE ×2 (13:36→18:58)
[2017-08-25] MEDS ORDERED: PHENYLEPHRINE HCL INJ/PF 10 MG/1 ML SDV ONE (13:36)
[2017-08-25] MEDS ORDERED: METHYLERGONOVINE MALEATE INJ/PF 0.2 MG/1 ML AMPULE IM ONE (14:00)
[2017-08-25] MEDS: OXYCODONE-ACETAMINOPHEN 5-325 MG TABLET PO PRN ×2 (16:41→22:37)
[2017-08-25 16:56] LABS: ABSOLUTE MONOCYTES (AUTO) 0.7 10^3/uL (0.1-1.4); ABSOLUTE NEUT (AUTO) 10.1 10^3/uL (1.7-8.2); BASOPHILS % (AUTO) 0.2 % (0-2); EOSINOPHILS % (AUTO) 0.1 % (0-6); HEMATOCRIT 24.2 % (36.0-47.0); LYMPHOCYTES % (AUTO) 15.8 % (13-45); MEAN CORPUSCULAR HEMOGLOBIN 24.6 pg (27.0-33.4); MEAN CORPUSCULAR HGB CONC 32.1 g/dL (32.0-36.0); MEAN CORPUSCULAR VOLUME 77 fl (80-97); MONOCYTES % (AUTO) 5.2 % (3-13); PLATELET COUNT 221 10^3/uL (150-450); RED BLOOD COUNT 3.16 10^6/uL (3.72-5.28); RED CELL DISTRIBUTION WIDTH 14.2 % (11.5-14.0); SEGMENTED NEUTROPHILS % (AUTO) 78.7 % (42-78); TOTAL CELLS COUNTED % (AUTO) 100 %; WHITE BLOOD COUNT 12.8 10^3/uL (4.0-10.5)
[2017-08-25] MEDS ORDERED: TRANEXAMIC ACID INJ/PF 1,000 MG/10 ML SDV IV ONE (17:00)
[2017-08-25 17:01] LABS: HEMOGLOBIN 7.8 g/dL (12.0-15.5)
[2017-08-25] MEDS ORDERED: ONDANSETRON HCL INJ/PF 4 MG/2 ML SDV IV PRN (19:02)
[2017-08-26] MEDS: IBUPROFEN 800 MG TABLET PO SCH ×5 (00:29→23:56)
[2017-08-26] MEDS ORDERED: DEXTROSE 5%-LACTATED RINGERS 1,000 ML IV PRN (02:00)
[2017-08-26] MEDS: OXYCODONE-ACETAMINOPHEN 5-325 MG TABLET PO PRN ×3 (06:06→20:11)
[2017-08-26 07:21] LABS: HEMATOCRIT 21.2 % (36.0-47.0); MEAN CORPUSCULAR HGB CONC 32.2 g/dL (32.0-36.0); MEAN CORPUSCULAR VOLUME 78 fl (80-97); PLATELET COUNT 208 10^3/uL (150-450); RED BLOOD COUNT 2.73 10^6/uL (3.72-5.28); RED CELL DISTRIBUTION WIDTH 14.3 % (11.5-14.0); WHITE BLOOD COUNT 11.5 10^3/uL (4.0-10.5)
[2017-08-26 07:23] LABS: HEMOGLOBIN 6.8 g/dL (12.0-15.5)
[2017-08-26] MEDS: DOCUSATE SODIUM 100 MG CAPSULE PO SCH ×2 (10:06→17:49)
[2017-08-26] MEDS: PRENATAL VITAMIN W DHA CAPSULE PO SCH (10:06)
[2017-08-26] MEDS: SIMETHICONE 80 MG TAB.CHEW PO PRN ×2 (10:36→17:49)
--- NOTE | 2017-08-26 15:47 | PDOC PROGRESS REPORT ---
Subjective-OB Progress Note for:: 08/26/17 Subjective: 32yo s/p repeat cearean delivery ppd 1. Ambulating, voiding and without difficulty. Reports she is passing gas, no BM yet. No concerns. Physical Exam (OB) Vital Signs: Temp Pulse Resp BP Pulse Ox 98.4 F 80 18 108/74 98 08/26/17 04:15 08/26/17 08:00 08/26/17 08:00 08/26/17 08:00 08/26/17 08:00 Intake & Output 08/25/17 08/26/17 08/27/17 06:59 06:59 06:59 Intake Total 1950 Output Total 1000 Balance 950 - General General Appearance: Appears well In distress: None - PIH/Pre-Eclampsia Clonus: Negative Headache: Absent - Dressing Removed: No - medipore Intact Incision: Dressing - Bilateral Tubal Ligation Dressing Removed: No - Lochia Lochia Amount: Moderate 25-50 ml Lochia Color: Rubra/Red - Abdomen Description: Tender, Soft, Round Hernia Present: No Fundal Description: Firm, Midline Fundal Height: u/u - u/2 - Respiratory Respiratory Status: No respiratory distress - Extremities Upper extremity: Normal inspection Lower extremities: Normal inspection - Neurological Cognition: Normal Orientation: AAOx4 - Psychological Associated symptoms: Normal affect, Normal mood Objective-Diagnostic Laboratory: 08/26/17 06:25 08/25/17 08/26/17 16:30 06:25 WBC 12.8 H 11.5 H RBC 3.16 L 2.73 L Hgb 7.8 L 6.8 L Hct 24.2 L 21.2 L MCV 77 L 78 L MCH 24.6 L 25.0 L MCHC 32.1 32.2 RDW 14.2 H 14.3 H Plt Count 221 208 Seg Neutrophils % 78.7 H Lymphocytes % 15.8 Monocytes % 5.2 Eosinophils % 0.1 Basophils % 0.2 Absolute Neutrophils 10.1 H Absolute Lymphocytes 2.0 Absolute Monocytes 0.7 Absolute Eosinophils 0.0 Absolute Basophils 0.0 Assessment and Plan(PN) - Assessment and Plan (1) Anemia due to acute blood loss Is this a current diagnosis for this admission?: Yes (2) Marijuana abuse Is this a current diagnosis for this admission?: Yes (3) Bipolar, depression, schizophrenia Is this a current diagnosis for this admission?: Yes (4) GDM (gestational diabetes mellitus) Qualifiers: Gestational diabetes mellitus control: unspecified Trimester: third trimester Qualified Code(s): O24.419 - Gestational diabetes mellitus in , unspecified control Is this a current diagnosis for this admission?: Yes (5) Qualifiers: Weeks of gestation: unspecified Qualified Code(s): Z34.90 - Encounter for supervision of normal , unspecified, unspecified trimester Is this a current diagnosis for this admission?: Yes (6) Delivery by elective caesarean section Is this a current diagnosis for this admission?: Yes - Time Spent with Patient Time with patient: 15-25 minutes Smoking Education Provided: Over 3 minutes Medications reviewed and adjusted accordingly: Yes - Disposition Anticipated Discharge: Home Within: within 24 hours
[2017-08-27] MEDS: OXYCODONE-ACETAMINOPHEN 5-325 MG TABLET PO PRN ×2 (02:38→09:39)
[2017-08-27] MEDS: IBUPROFEN 800 MG TABLET PO SCH ×2 (06:46→11:01)
--- NOTE | 2017-08-27 09:31 | PDOC PROGRESS REPORT ---
Subjective-OB Progress Note for:: 08/27/17 Subjective: Sitting on side of bed, ready to go home, baby in room, fob in chair, no c/o, pain under control, eating well, voiding, breast/bottle, pt upset cause I asked her about her Psych meds, states everyone loves to ask her that Physical Exam (OB) Vital Signs: Temp Pulse Resp BP Pulse Ox 98.3 F 80 18 101/63 99 08/27/17 08:05 08/27/17 08:05 08/27/17 08:05 08/27/17 08:05 08/27/17 08:05 Intake & Output 08/26/17 08/27/17 08/28/17 06:59 06:59 06:59 Intake Total 1950 650 Output Total 1000 3 Balance 950 647 - PIH/Pre-Eclampsia DTR's: 2 + Clonus: Negative Headache: Absent Epigastric Pain: No Visual Changes: No - Dressing Removed: Yes Incision: Dressing Closure Type: Steri-Strips - Bilateral Tubal Ligation Dressing Removed: No - Lochia Lochia Amount: Scant < 10 ml Lochia Color: Rubra/Red - Abdomen Description: Soft, Round Hernia Present: No Fundal Description: Firm, Midline Fundal Height: u/u - u/2 > 4/u*- Describe: clots expressed with fundal massage Objective-Diagnostic Laboratory: 08/26/17 06:25 Assessment and Plan(PN) - Assessment and Plan (1) Anemia due to acute blood loss Is this a current diagnosis for this admission?: Yes (2) Bipolar, depression, schizophrenia Is this a current diagnosis for this admission?: Yes (3) Delivery by elective caesarean section Is this a current diagnosis for this admission?: Yes (4) GDM (gestational diabetes mellitus) Qualifiers: Gestational diabetes mellitus control: diet-controlled Trimester: third trimester Qualified Code(s): O24.410 - Gestational diabetes mellitus in , diet controlled Is this a current diagnosis for this admission?: Yes (5) Marijuana abuse Is this a current diagnosis for this admission?: Yes - Time Spent with Patient Time with patient: Less than 15 minutes Smoking Education Provided: Over 3 minutes Medications reviewed and adjusted accordingly: Yes - Disposition Anticipated Discharge: Home Within: Other - home today, rtc 1 week, rev S&S to report, does not need psych meds per pt, strategic planner saw pt yesterday, states she has help at home, reviewed [facility] dischage brochure
[2017-08-27] MEDS: DOCUSATE SODIUM 100 MG CAPSULE PO SCH (09:35)
[2017-08-27] MEDS: PRENATAL VITAMIN W DHA CAPSULE PO SCH (09:36)
--- NOTE | 2017-08-27 09:40 | PDOC DISCHARGE SUMMARY ---
Final Diagnosis Discharge Date: 08/27/17 - Final Diagnosis (1) Anemia due to acute blood loss Is this a current diagnosis for this admission?: Yes (2) Bipolar, depression, schizophrenia Is this a current diagnosis for this admission?: Yes (3) Delivery by elective caesarean section Is this a current diagnosis for this admission?: Yes (4) GDM (gestational diabetes mellitus) Is this a current diagnosis for this admission?: Yes (5) Marijuana abuse Is this a current diagnosis for this admission?: Yes Discharge Data - Discharge Medication Prescriptions: Oxycodone HCl/Acetaminophen [Percocet 5-325 mg Tablet] 1 tab PO Q4HP PRN #30 tablet PRN Reason: Docusate Sodium [Colace 100 mg Capsule] 100 mg PO BID #30 capsule Ibuprofen [Motrin 800 mg Tablet] 800 mg PO Q6 #60 tablet Vit/Dha [ Multi + Dha Capsule] 1 cap PO DAILY #30 capsule Home Medications: Acetaminophen/Diphenhydramine [Tylenol Pm Ex-Strength Caplet] 2 tab PO QHS 08/22 Docusate Sodium [Colace 100 mg Capsule] 100 mg PO BID #30 capsule 08/27/17 Ibuprofen [Motrin 800 mg Tablet] 800 mg PO Q6 #60 tablet 08/27/17 Oxycodone HCl/Acetaminophen [Percocet 5-325 mg Tablet] 1 tab PO Q4HP PRN #30 tablet 08/27/17 Vit/Dha [ Multi + Dha Capsule] 1 cap PO DAILY #30 capsule 08/27 Gestational Age: 39 Reason(s) for Admission: Ceasarean Section-Repeat Procedures: NST, Ultrasound Intrapartum Procedure(s): : Low Cervical, Transverse - [place] Data Baby 1 Male Home with Mother: Yes - Diagnosis Test Laboratory: Temp Pulse Resp BP Pulse Ox 98.3 F 80 18 101/63 99 08/27/17 08:05 08/27/17 08:05 08/27/17 08:05 08/27/17 08:05 08/27/17 08:05 08/22/17 08/22/17 08/25/17 11:35 11:38 16:30 RBC 3.80 3.16 L Hgb 9.6 L 7.8 L Hct 30.0 L 24.2 L Urine Opiates Screen NEGATIVE 08/26/17 06:25 RBC 2.73 L Hgb 6.8 L Hct 21.2 L Urine Opiates Screen - Discharge information/Instructions Discharge Activity: Activity As Tolerated, No Lifting Over 10 Pounds, No Lifting /Push/Pulling, Pelvic Rest Discharge Diet: As Tolerated, Regular Disposition: HOME, SELF-CARE Follow up with: [facility] in: 1, Weeks
[2017-08-27 14:16] VITALS: BP 115/63
== END 2017-08-27 16:30 | disposition home or self-care (01) | DRG 765 ==
LOC: 2S 05:03
PROVIDERS: ADMIT Obstetrics & Gynecology Gynecology; ATTEND Obstetrics & Gynecology Gynecology
PROC: 4A1HXCZ Monitoring of Products of Conception, Cardiac Rate, External Approach (ICD-10-PCS; 2017-08-25)
PROC: 10D00Z1 Extraction of Products of Conception, Low, Open Approach (ICD-10-PCS; principal; 2017-08-25 07:45)
PROC: 3E0234Z Introduction of Serum, Toxoid and Vaccine into Muscle, Percutaneous Approach (ICD-10-PCS; 2017-08-27)
DX: O34.219 Maternal care for unspecified type scar from previous cesarean delivery (principal); D62 Acute posthemorrhagic anemia; O99.324 Drug use complicating childbirth; O24.420 Gestational diabetes mellitus in childbirth, diet controlled; O99.334 Smoking (tobacco) complicating childbirth; F17.210 Nicotine dependence, cigarettes, uncomplicated; O99.344 Other mental disorders complicating childbirth; F20.9 Schizophrenia, unspecified; O99.02 Anemia complicating childbirth; F12.10 Cannabis abuse, uncomplicated; Z37.0 Single live birth
CPT/HCPCS: 1961; 36415; 59025; 80307; 81001; 85025; 85027; 86850; 86900; 86901; 90715; 94799; J0131; J0461; J2210; J2250; J2270; J2370; J2405; J2590; J2704; J3010; J3490

== ENCOUNTER → 2020-05-17 | Outpatient (CLI) | payer SELFPAY ==
--- NOTE | 2020-05-17 15:45 | RADIOLOGY REPORT (SQ) ---
EXAM DESCRIPTION: U/S OB 14+ TRNABD 1GES W/O DOP IMAGES COMPLETED DATE/TIME: 05/17/2020 3:09 pm REASON FOR STUDY: (Z34.82)ENCOUNTER FOR SUPRVSN OF NORMAL , SECOND TRIMESTER Z34.[address] FOR SUPRVSN OF NORMAL , SECOND TRI COMPARISON: None recent. TECHNIQUE: Static and Dynamic grayscale imaging performed of gravid uterus using transabdominal appr oach. Additional selected color Doppler and spectral images recorded. All stored on PACS. LIMITATIONS: Limited evaluation of anatomy due to gestational age. See below. FINDINGS: FETUSES SEEN:1 EGA: 16 weeks 4 days Calculated using BPD,FL,HC,AC documented on images. No discrepancy with clinica l dates. RICKIE: 10/28/2020 EFW: 165 grams PERCENTILE: Not applicable. Fetus less than or equal to 20 weeks gestation. LIDYA: Adequate. PLACENTA: Anterior. GRADE: I PRESENTATION: Variable. ANATOMY: HEART RATE: 155 beats per minute. FOUR CHAMBER HEART: Not visualized. THREE VESSEL CORD: Not visualized. CORD INSERTION: Visualized. KIDNEYS AND BLADDER: Visualized. Appear normal. STOMACH: Not visualized. SPINE: Not well visualized. BRAIN AND LATERAL VENTRICLES: Not well visualized. OTHER: No other significant finding. MATERNAL ADNEXA: Maternal ovaries not visualized. CERVICAL LENGTH: 3.9 cm. Closed. OTHER: No other significant finding. IMPRESSION: LIVING INTRAUTERINE . ESTIMATED GESTATIONAL AGE 16 weeks 4 days. NO VISUALIZED ANOMALIES. Trimester of : Second trimester - 13 weeks 1 day to 27 weeks 6 days. TECHNICAL DOCUMENTATION: JOB ID: [id number] [employer]- All Rights Reserved Reading location - IP/workstation name: [email or web address]
== END ==
LOC: RAD 14:25
PROVIDERS: ATTEND Midwife
DX: Z34.82 Encounter for supervision of other normal pregnancy, second trimester (principal); Z3A.16 16 weeks gestation of pregnancy
CPT/HCPCS: 76805